=== PATIENT | male | born 1980 | race African-American/Black ===

== ENCOUNTER 2022-09-28 09:14 | Emergency (ER) | payer OTHER, MEDICAID, SELFPAY ==
[2022-09-28] VITALS (24 sets, daily range): BP systolic 144–191; BP diastolic 71–104; PULSE 104–123; RESP 20–61; TEMP 36.9; O2SAT 96–99; BMI 52.4
--- NOTE | 2022-09-28 09:22 | DI.RAD.S_ITS ---
PROCEDURE: XR CHEST 1V INDICATIONS: SOB TECHNIQUE: One view of the chest was acquired. COMPARISON: None. FINDINGS: Surgical changes and devices: None. Lungs and pleura: Pulmonary vascular congestion is seen. No definite focal infiltrate is noted. No pleural effusions or pneumothorax. Mediastinum: Mediastinal contours appear normal. Heart size is enlarged. Bones and chest wall: No suspicious bony lesions. Overlying soft tissues appear unremarkable. IMPRESSION: Cardiomegaly. Mild pulmonary vascular congestion. No definite focal infiltrate, pleural effusion or pneumothorax. Dictated by: Dilan Garcia M.D. on 09/28/2022 at 10:06 Approved by: Dilan Garcia M.D. on 09/28/2022 at 10:07
--- NOTE | 2022-09-28 09:22 | ED.SOB ---
HPI - SOB/Dyspnea General Chief Complaint: Shortness of Breath/Dyspnea Stated Complaint: out of breath x2 months with sweats Time Seen by Provider: 09/28/22 09:21 History of Present Illness HPI Narrative: 41-year-old smoker with history of untreated hypertension presents with a chief complaint of upwards of 2 months of shortness of breath. He states that it tends to get worse when he lies flat and when he exerts himself and takes and increasing period of time to get his breath back. He states he has no chest pain and has had no fever or chills. Denies nausea, vomiting or diarrhea. He denies any recent travel, trauma, injury, known cancer but does have some pain and swelling in his right foot. He denies any change in medications or diet. Related Data Previous Rx's Medication Instructions Recorded furosemide 40 mg tablet (Lasix) 40 mg PO DAILY #14 tabs 09/28/22 lisinopril 20 mg tablet 20 mg PO DAILY #30 tabs 09/28/22 Allergies Allergy/AdvReac Type Severity Reaction Status Date / Time No Known Drug Allergies Allergy Verified 09/28/22 11:10 Review of Systems Review of Systems Narrative: GENERAL: Denies chills, fatigue, malaise, fever, sweats. HEENT: Denies sinus pain, ear pain, sore throat, difficulty swallowing, dizziness. RESPIRATORY: See HPI CARDIOVASCULAR: Denies chest pain, palpitations, orthopnea, edema, GASTROINTESTINAL: Denies nausea, vomiting, abdominal pain, diarrhea, constipation, melena. : Denies dysuria, frequency, incontinence, hematuria, urinary retention. MUSCULOSKELETAL: denies weakness, joint pain, or bony pain SKIN: Denies rash, skin lesions, or other NEUROLOGIC: Denies weakness, headache, numbness, change in speech, confusion, seizures, incoordination. PSYCHIATRIC: No concerning psychosocial issues. 12 point review of systems is negative except for those stated above Exam Narrative Exam Narrative: GENERAL: [41] year old patient appears stated age. Well-developed patient, in moderate distress, obviously short of breath HEAD: Atraumatic. Normocephalic. EYES: Pupils equal round and reactive. Extraocular motions intact. No scleral icterus. No injection or drainage. ENT: Nose without bleeding, purulent drainage. Throat without erythema, tonsillar hypertrophy or exudate. Airway patent. NECK: Trachea midline. Non tender CARDIOVASCULAR: Tachycardic and regular rhythm without murmurs, gallops, or rubs. RESPIRATORY: Increased work of breathing, rapid and shallow, decreased breath sounds throughout, possible bilateral basilar crackles GASTROINTESTINAL: Abdomen soft, non-tender, nondistended. EXTREMITIES: No edema or joint tenderness. BACK: Nontender without deformity or crepitance. No flank tenderness. NEURO: AOx3. SKIN: No rash or erythema of visible areas Initial Vital Signs Initial Vital Signs: Vital Signs Pulse Rate 123 H 09/28/22 09:20 Blood Pressure 191/82 H 09/28/22 09:20 Pulse Oximetry 99 09/28/22 09:20 Course Orders Ordered: Discontinued Medications Furosemide (Furosemide 40 Mg/4 Ml Vial) 40 mg IV NOW ONE Stop: 09/28/22 10:24 Last Admin: 09/28/22 10:42 Dose: 40 mg Documented By: KIAN Nicotine (Nicotine 7 Mg Patch) 7 mg TOP NOW ONE Stop: 09/28/22 11:54 Last Admin: 09/28/22 12:03 Dose: 7 mg Documented By: RODRIGUEZ Reevaluation(s) Reevaluation #1: Patient has made a large amount of dilute urine after Lasix, feels significant improvement no longer short of breath Consultations Consultation #1: called Dr. Travis ([facility]) regarding echo, not yet read. Consultation #2: discussed echo with Dr. Travis (see report) discussed with office communication professor cardio (Dr. Macias). Agrees with plan to diurese, admit here at [place]. Typical ischemia workup. HTN control with ACEI. Diuretic. Vital Signs Vital signs: Vital Signs - 8 hr 09/28/22 09:28 09/28/22 09:20 09/28/22 09:20 Temperature 98.4 F Pulse Rate 108 H 123 H Respiratory Rate 25 H Blood Pressure 191/82 H 191/82 H Pulse Oximetry 99 99 Oxygen Delivery Method Room Air 09/28/22 09:30 09/28/22 09:30 09/28/22 09:45 Temperature Pulse Rate 106 H 104 H Respiratory Rate 27 H 31 H Blood Pressure 183/83 H Pulse Oximetry 99 99 Oxygen Delivery Method 09/28/22 09:45 09/28/22 10:00 09/28/22 10:27 Temperature Pulse Rate 106 H Respiratory Rate Blood Pressure 168/71 H 155/100 H Pulse Oximetry 99 Oxygen Delivery Method 09/28/22 10:27 09/28/22 10:30 09/28/22 10:30 Temperature Pulse Rate 106 H 106 H Respiratory Rate 31 H Blood Pressure 156/94 H Pulse Oximetry 98 97 Oxygen Delivery Method 09/28/22 10:42 09/28/22 10:42 09/28/22 10:45 Temperature Pulse Rate 112 H Respiratory Rate 31 H Blood Pressure 157/101 H 161/104 H Pulse Oximetry 99 Oxygen Delivery Method 09/28/22 10:45 09/28/22 11:00 09/28/22 11:30 Temperature Pulse Rate 108 H 106 H 116 H Respiratory Rate 23 35 H Blood Pressure Pulse Oximetry 98 96 97 Oxygen Delivery Method 09/28/22 12:00 09/28/22 12:12 09/28/22 12:12 Temperature Pulse Rate 119 H 109 H Respiratory Rate 25 H 61 H Blood Pressure 144/90 H Pulse Oximetry 98 97 Oxygen Delivery Method 09/28/22 12:15 09/28/22 12:15 09/28/22 12:30 Temperature Pulse Rate 105 H 107 H Respiratory Rate 32 H 30 H Blood Pressure 153/93 H Pulse Oximetry 96 96 Oxygen Delivery Method Room Air 09/28/22 12:31 09/28/22 12:31 09/28/22 12:46 Temperature Pulse Rate 109 H Respiratory Rate 43 H Blood Pressure 171/102 H 151/91 H Pulse Oximetry 97 Oxygen Delivery Method Room Air 09/28/22 12:46 09/28/22 13:00 09/28/22 13:00 Temperature Pulse Rate 106 H 108 H Respiratory Rate 20 31 H Blood Pressure 154/85 H Pulse Oximetry 96 96 Oxygen Delivery Method Room Air 09/28/22 13:15 09/28/22 13:15 09/28/22 13:30 Temperature Pulse Rate 106 H 106 H Respiratory Rate 31 H 31 H Blood Pressure 166/86 H Pulse Oximetry 96 96 Oxygen Delivery Method Room Air 09/28/22 13:31 09/28/22 13:31 Temperature Pulse Rate 105 H Respiratory Rate 38 H Blood Pressure 163/79 H Pulse Oximetry 97 Oxygen Delivery Method MDM - SOB/Dyspnea Lab Data 09/28/22 09:24 09/28/22 09:24 Labs: Lab Results 09/28/22 09/28/22 09/28/22 Range/Units 09:24 09:24 09:24 WBC 11.6 H (4.5-11.0) X10^3/uL RBC 5.40 (4.5-5.9) X10^6/uL Hgb 12.4 L (13.5-17.5) g/dL Hct 40.2 L (41-53) % MCV 74.4 L (80-100) fL MCH 23.0 L (26-34) PG MCHC 31.0 (30-36) % RDW 15.5 H (11.6-14.8) % Plt Count 390 (150-400) X10^3/uL Neut % (Auto) 82.8 H (50-75) % Lymph % (Auto) 12.0 L (25-40) % [place] % (Auto) 3.9 (3-14) % Eos % (Auto) 0.6 L (2-4) % Baso % (Auto) 0.7 (0-2) % Neut # (Auto) 9600 H (8653-3166) /uL Lymph # (Auto) 1400 (6944-1778) /uL [place] # (Auto) 400 (0-900) /uL Eos # (Auto) 100 (0-450) /uL Baso # (Auto) 100 (0-100) /uL PT 14.0 H (10.1-12.7) SECONDS INR 1.2 (0.9-1.3) D-Dimer 3860 H (<500) ng/ml Sodium (137-145) mmol/L Potassium (3.4-5.1) mmol/L Chloride (98-107) mmol/L Carbon Dioxide (22-32) mmol/L BUN (9-20) mg/dL Creatinine (0.66-1.25) mg/dL Estimated GFR (>60) mL/min BUN/Creatinine Ratio (6-22) Glucose (70-100) mg/dL Calcium (8.4-10.2) mg/dL Magnesium (1.6-2.3) mg/dL Total Bilirubin (0.2-1.3) mg/dL AST (17-59) IU/L ALT (<50) IU/L Alkaline Phosphatase (38-126) U/L Total Creatine Kinase (55-170) U/L CK-MB (CK-2) (<2.37) ng/mL CK-MB (CK-2) Rel Index (1.5-5.0) % Troponin I (0.01-0.034) ng/mL C-Reactive Protein (<1.0) mg/dL NT-Pro-B Natriuret Pep (<125) pg/mL Total Protein (6.3-8.2) g/dL Albumin (3.5-5.0) g/dL Globulin (1.7-4.1) g/dL Albumin/Globulin Ratio (1.0-2.8) Lipase (23-300) U/L U Opiates 300ng/mL cut (Negative) Ur Oxycodone Screen (Negative) Urine Methadone Screen (Negative) Ur Barbiturates Screen (Negative) U Tricyclic Antidepress (Negative) Ur Phencyclidine Scrn (Negative) Ur Amphetamines Screen (Negative) U Methamphetamines Scrn (Negative) Ur MDMA Scrn (Ecstasy) (Negative) U Benzodiazepines Scrn (Negative) Urine Cocaine Screen (Negative) U Marijuana (THC) Screen (Negative) SARS-CoV-2 (PCR) (Negative) 09/28/22 09/28/22 09/28/22 Range/Units 09:24 09:26 10:10 WBC (4.5-11.0) X10^3/uL RBC (4.5-5.9) X10^6/uL Hgb (13.5-17.5) g/dL Hct (41-53) % MCV (80-100) fL MCH (26-34) PG MCHC (30-36) % RDW (11.6-14.8) % Plt Count (150-400) X10^3/uL Neut % (Auto) (50-75) % Lymph % (Auto) (25-40) % [place] % (Auto) (3-14) % Eos % (Auto) (2-4) % Baso % (Auto) (0-2) % Neut # (Auto) (2824-2578) /uL Lymph # (Auto) (6789-8960) /uL [place] # (Auto) (0-900) /uL Eos # (Auto) (0-450) /uL Baso # (Auto) (0-100) /uL PT (10.1-12.7) SECONDS INR (0.9-1.3) D-Dimer (<500) ng/ml Sodium 140 (137-145) mmol/L Potassium 4.3 (3.4-5.1) mmol/L Chloride 105 (98-107) mmol/L Carbon Dioxide 24 (22-32) mmol/L BUN 19 (9-20) mg/dL Creatinine 0.93 (0.66-1.25) mg/dL Estimated GFR > 60 (>60) mL/min BUN/Creatinine Ratio 20.4 (6-22) Glucose 156 H (70-100) mg/dL Calcium 8.4 (8.4-10.2) mg/dL Magnesium 1.9 (1.6-2.3) mg/dL Total Bilirubin 0.7 (0.2-1.3) mg/dL AST 41 (17-59) IU/L ALT 39 (<50) IU/L Alkaline Phosphatase 138 H (38-126) U/L Total Creatine Kinase 334 H (55-170) U/L CK-MB (CK-2) 5.42 H (<2.37) ng/mL CK-MB (CK-2) Rel Index 1.6 (1.5-5.0) % Troponin I 0.027 (0.01-0.034) ng/mL C-Reactive Protein 1.7 H (<1.0) mg/dL NT-Pro-B Natriuret Pep 6270 H (<125) pg/mL Total Protein 7.8 (6.3-8.2) g/dL Albumin 3.8 (3.5-5.0) g/dL Globulin 4.0 (1.7-4.1) g/dL Albumin/Globulin Ratio 1.0 (1.0-2.8) Lipase 149 (23-300) U/L U Opiates 300ng/mL cut Negative (Negative) Ur Oxycodone Screen Negative (Negative) Urine Methadone Screen Negative (Negative) Ur Barbiturates Screen Negative (Negative) U Tricyclic Antidepress Negative (Negative) Ur Phencyclidine Scrn Negative (Negative) Ur Amphetamines Screen Positive H (Negative) U Methamphetamines Scrn Positive H (Negative) Ur MDMA Scrn (Ecstasy) Negative (Negative) U Benzodiazepines Scrn Negative (Negative) Urine Cocaine Screen Negative (Negative) U Marijuana (THC) Screen Negative (Negative) SARS-CoV-2 (PCR) Negative (Negative) Urine Dip Bedside Urine Glucose Negative Bedside Urine Bilirubin - Negative Bedside Urine Ketone - Negative Urine Specific [place] 1.015 Bedside Urine Occult Blood - Negative Bedside Urine pH 6.0 Bedside Urine Protein - Negative Bedside Urine Urobilinogen - Negative Bedside Urine Nitrite - Negative Bedside Urine Leukocytes - Negative Esterase MDM Narrative Medical decision making narrative: CC: 41-year-old male with increasing shortness of breath for at least the past few months including exertional dyspnea, orthopnea, lower extremity swelling in the absence of trauma or injury. Denies alcohol use or street drugs. Did have some cough and cold symptoms with low-grade fever at the onset Complicating co-morbidities: Untreated hypertension, BMI 52.5 Data collected from: Patient, also independent discussion with at bedside who suggest these symptoms have likely been going on much longer than a few months Medical records reviewed: Nothing available in our EMR Differential considered, but not limited to: CHF due to myocarditis versus drug use versus alcohol versus untreated hypertension versus pulmonary embolism versus other Exam documented above, pertinent findings include: Elevated BMI, elevated work of breathing, exertional dyspnea and orthopnea, crackles in bases Lab Test results independently reviewed as above. Pertinent findings: Slight elevation in white blood cells with minimal left shift, low suspicion for infection given presentation. Slightly anemic with low MCV, perhaps iron-deficiency, would warrant anemia workup. Critically elevated D-dimer, will pursue pulmonary embolism with CT angiogram. Electrolytes and renal function within normal limits, troponin 0.027, indeterminate range, unclear etiology. Elevated BNP consistent with CHF presentation. UDS positive for both amphetamines and methamphetamines consistent with possibility of drug-induced cardiomyopathy Independently reviewed EKG as above Imaging studies independently reviewed: Chest x-ray notes cardiomegaly and vascular congestion, consistent with CHF presentation. CTA without obvious pulmonary embolism, nose pulmonary edema. Echo notes moderately dilated left ventricle with EF of 20-25% and global hypokinesis of left ventricle as well as moderate to severely dilated right ventricle. Consultations: Dr. Travis (Cardio), Dr. Macias (Cardio) see above Treatments: Lasix Re-evaluations: patient does admittedly feels significant improvement after producing a large volume of dilute urine. Discussion: Patient presents with acute CHF exacerbation though the acuity is hard to determine. Patient clearly and volume overload and diagnostics suggestive of significantly depressed ejection fraction in the absence of pulmonary embolism. Patient is not hypoxemic at any point. There is no evidence of pulmonary embolism or acute ischemia. Other possible etiologies of cardiomyopathy include viral myocarditis, methamphetamine versus other. Patient strongly encouraged to be admitted to the hospital for ongoing diuresis, blood pressure control and further workup. He clearly demonstrates capacity to make his own decisions and after this extensive discussion refuses admission. His is at the bedside and though frustrated understands that the patient can make his own decisions. He understands that at any point should he change his mind he can return for this workup and without fear of rapid percussion. He understands that the decision to leave could result in worsening of his condition, permanent disability or even . I have written prescriptions and sent to his pharmacy of choice and given contact information for Cardiology and primary care Disposition: see below, along with detailed discharge instructions that have been reviewed with patient as well as indications for ED re-evaluation and additional outpatient follow up Critical Care Time Critical Care Time Critical Care Time: Yes Total Critical Care Time: 45 Attestation: The high probability of a clinically significant, sudden or life threatening deterioration of the [CV] system(s) required my full and direct attention, intervention and personal management. The aggregate critical care time was [45] minutes. This time is in addition to time spent performing reported procedures but includes the following: [x] Data Review and interpretation [x] Patient assessment and monitoring of vital signs [x] Documentation [x] Medication orders and management Discharge Plan Departure Patient Disposition: Home Clinical Impression: Congestive heart failure Instructions: DI for Heart Failure Activity Restrictions/Additional Instructions: *You have been diagnosed with [congestive heart failure, possibly due to untreated blood pressure versus a viral infection of your heart or other. As we discussed I very much would have hoped to keep you in the hospital but you would prefer to go home and you have the right to make this decision.] *What to do: *Please continue to take your regular medications as directed. [ X] New medication prescriptions sent to your pharmacy: [[facility] ] [ ] New medication written as a paper prescription [ ] No new medications given *Please follow up with your primary care provider in 2-3 days, call for an appointment. Let them know you were seen in the Emergency Department and that we ask that you be seen in follow up. We will electronically transmit a record of today's note if your PCP is in our system *If you do not have a primary care provider please contact the [facility] Resource line at [phone]. They will ask some questions about your medical history and help get you set up with a doctor in the community. *Also, please follow up with Dr. Macias of [facility], please let the office know that you were seen and evaluated here in the emergency department and we would like you to be seen in follow up. *Return to Emergency Department if you should have any new, worsening or concerning symptoms, such as [fever greater than 101 F, shaking chills, worsening pain, persistent vomiting or other bothersome symptoms] Prescriptions: New furosemide [Lasix] 40 mg tablet 40 mg PO DAILY Qty: 14 0RF lisinopril 20 mg tablet 20 mg PO DAILY Qty: 30 0RF Referrals: Magaly Macias MD [Physician] - Stand Alone Forms: Patient Portal/API
[2022-09-28 09:47] LABS: Add Manual Diff / Slide Review NO; Basophils Absolute Auto 100 /uL (0-100); Basophils Percent Auto 0.7 % (0-2); Eosinophils Absolute Auto 100 /uL (0-450); Eosinophils Percent Auto 0.6 % (2-4); Hematocrit 40.2 % (41-53); Hemoglobin 12.4 g/dL (13.5-17.5); Lymphocytes Absolute Auto 1400 /uL (1100-4500); Mean Corpuscular Volume 74.4 fL (80-100); Monocytes Absolute Auto 400 /uL (0-900); Monocytes Percent Auto 3.9 % (3-14); Neutrophils Absolute Auto 9600 /uL (1500-7000); Neutrophils Percent Auto 82.8 % (50-75); Platelet Count 390 X10^3/uL (150-400); Red Cell Distribution Width 15.5 % (11.6-14.8); White Blood Cell Count 11.6 X10^3/uL (4.5-11.0)
[2022-09-28 09:58] LABS: Alanine Aminotransferase 39 IU/L (<50); Albumin 3.8 g/dL (3.5-5.0); Alkaline Phosphatase 138 U/L (38-126); Aspartate Aminotransferase 41 IU/L (17-59); BUN Creatinine Ratio 20.4 (6-22); Bilirubin Total 0.7 mg/dL (0.2-1.3); Blood Urea Nitrogen 19 mg/dL (9-20); C-Reactive Protein Quant 1.7 mg/dL (<1.0); Calcium 8.4 mg/dL (8.4-10.2); Carbon Dioxide 24 mmol/L (22-32); Chloride 105 mmol/L (98-107); Creatine Kinase 334 U/L (55-170); Estimated Glomerular Filt Rate > 60 mL/min (>60); Glucose 156 mg/dL (70-100); HEMOLYSIS < 15 (0-50); Lipase 149 U/L (23-300); Magnesium 1.9 mg/dL (1.6-2.3); Potassium 4.3 mmol/L (3.4-5.1); Sodium 140 mmol/L (137-145); Total Protein 7.8 g/dL (6.3-8.2)
[2022-09-28 09:59] LABS: D Dimer 3860 ng/ml (<500)
[2022-09-28 10:04] LABS: INR 1.2 (0.9-1.3)
[2022-09-28 10:07] LABS: NT-proBNP (BNP-Adult 18+) 6270 pg/mL (<125); Troponin I 0.027 ng/mL (0.01-0.034)
[2022-09-28 10:10] LABS: CKMB % Relative Index 1.6 % (1.5-5.0); Creatine Kinase MB 5.42 ng/mL (<2.37)
--- NOTE | 2022-09-28 10:23 | DI.CT.S_ITS ---
PROCEDURE: CT ANGIO CHEST PE PROTOCOL INDICATIONS: SOB, tachy, critical Dimer, acute CHF TECHNIQUE: After the administration of intravenous contrast, 2 mm thick sections acquired from the pulmonary apices to the posterior costophrenic angles. 3-dimensional maximum intensity projection (MIP) coronal and sagittal reformats were then acquired through the thorax. For radiation dose reduction, the following was used: automated exposure control, adjustment of mA and/or kV according to patient size. COMPARISON: None. FINDINGS: Image quality: Excellent. Pulmonary arteries: Pulmonary arterial opacification is suboptimal. Mean attenuation in the main pulmonary trunk is less than 180 Hounsfield units. Only central/saddle pulmonary embolism can be confidently excluded. No gross evidence of lobar or segmental pulmonary embolism identified. Normal caliber main pulmonary trunk. Lungs and pleura: It diffuse interlobular septal thickening and hazy ground-glass attenuation of the lung parenchyma, consistent with pulmonary edema in the appropriate clinical setting. No consolidation. Central airways clear. No significant pleural finding. Mediastinum: Normal heart size. No pericardial effusion. No mediastinal or hilar lymphadenopathy. Bones and chest wall: No acute chest wall lesion. No suspicious bone abnormality Abdomen: No acute finding in the partially visualized upper abdomen. IMPRESSION: Suboptimal pulmonary arterial opacification. No gross evidence of pulmonary embolism. Findings consistent with pulmonary edema. Dictated by: Nikita Swift M.D. on 09/28/2022 at 10:51 Approved by: Nikita Swift M.D. on 09/28/2022 at 10:54
--- NOTE | 2022-09-28 10:23 | DI.ECHO.S_ITS ---
[facility]---------+ [facility] +---------+ : : [address] [place] : : : : [id number] : : : : Phone: [phone] Echocardiogram Report + + :Name: MOY CLEMENT Study Date: 09/28/2022 Height: 70 in : :[facility] ReadingLocation: Weight: 365 lb : : Gender: Male BSA: 2.7 m2 : :: 1980 Age: 41 yrs BP: 161/104 mmHg: :Reason For Study: ACUTE CONGESTIVE HEART FAILURE : :Ordering Physician: RAMOS, : :VEGA Performed By: Jacy Castano : :Referring: VEGA BEASLEY : + + Interpretation Summary Moderately dilated left ventricle with ejection fraction 20-25%. Severe global hypokinesis of the left ventricle. Moderate to severely dilated right ventricle with right ventricular systolic function at the lower limits of normal. Severely dilated left atrium. Mild mitral regurgitation. Mild tricuspid regurgitation. Right ventricular systolic pressure is estimated to be 39 mmHg plus the clinically estimated CVP which cannot be estimated on this exam. Procedure: A two-dimensional transthoracic echocardiogram with color flow and Doppler was performed. The study quality was technically adequate. There is no prior echocardiogram noted for this patient. A contrast injection of Definity was performed to improve assessment of LV function. The patient was in sinus tachycardia with heart rates between 105-113 bpm during the exam. Left Ventricle: The left ventricle is moderately dilated. The estimated left ventricular end diastolic volume is 303 ml. Left ventricular wall thickness is at the upper limits of normal. The ejection fraction is estimated to be 20- 25%. There is severe global hypokinesis of the left ventricle. Diastolic function could not be accurately assessed due to tachycardia. Right Ventricle: The right ventricle is moderate to severely dilated. Right ventricular systolic function is at the lower limits of normal. Atria: The left atrium is severely dilated. Right atrial size is normal. There is no Doppler evidence for an interatrial shunt. Mitral Valve: The mitral valve is normal in structure and function. There is mild mitral regurgitation. Aortic Valve: The aortic valve opens well. There is no aortic valve stenosis. No aortic regurgitation is present. Tricuspid Valve: The tricuspid valve is normal in structure and function. There is mild tricuspid regurgitation. Right ventricular systolic pressure is estimated to be 39 mmHg plus the clinically estimated CVP which cannot be estimated on this exam. Pulmonic Valve: The pulmonic valve leaflets are thin and pliable; valve motion is normal. There is mild pulmonic regurgitation. Great Vessels: The aortic root is normal size. The dimensions of the ascending aorta are normal. The inferior vena cava was not visualized. Pericardium/ Pleura There is no pericardial effusion. There is no pleural effusion. MMode/2D Measurements & Calculations LVIDd: 6.7 cm LVOT diam: 2.5 cm LVIDs: 6.1 cm Ao root diam: 3.6 cm FS: 9.9 % asc Aorta Diam: 3.0 cm EPSS: 2.5 cm Ao Arch Diam (Prox Trans): 2.5 cm IVSd: 0.97 cm LVPWd: 1.1 cm LV pierre. diameter/BSA (cm/m^2): 2.5 LV sys. diameter/BSA (cm/m^2): 2.3 LA A2 area: 36.7 cm2 RA long axis: 5.2 cm LA A4 area: 27.5 cm2 RA area: 22.3 cm2 LA length (vol): 6.1 cm RA vol: 81.3 ml LA vol: 140.6 ml RA : 30.2 ml/m2 LA vol index: 52.2 ml/m2 RVD1 (basal): 5.0 cm RVD2 (mid): 4.6 cm TAPSE: 1.7 cm Doppler Measurements & Calculations Ao V2 max: 125.9 cm/sec LVOT Max Porfirio: 78.9 cm/sec Ao V2 mean: 95.1 cm/sec LV V1 max P.5 mmHg Ao max P.4 mmHg LV V1 VTI: 13.6 cm Ao mean P.9 mmHg MARTHA(I,D): 3.0 cm2 Ao V2 VTI: 22.4 cm MARTHA(V,D): 3.1 cm2 sev ratio: 0.61 MARTHA indexed to BSA (cm^2/m^2): 1.1 MV E max porfirio: 134.7 cm/sec TR max porfirio: 313.4 cm/sec MV A max porfirio: 1.3 cm/sec TR max P.3 mmHg MV E/A: 102.6 PA V2 max: 97.2 cm/sec Med Peak E' Porfirio: 4.4 cm/sec PA V2 mean: 65.3 cm/sec E/E' med: 30.3 PA mean P.0 mmHg Lat Peak E' Porfirio: 7.1 cm/sec PA pr(Accel): 44.7 mmHg E/E' lat: 19.1 E/e' average: 24.7 MV dec time: 0.16 sec SV(OT): 67.3 ml Electronically signed by: Natasha Aguilar on Reading Physician:09/28/2022 01:56 PM
[2022-09-28] MEDS: FUROSEMIDE 40 MG/4 ML VIAL IV (10:42)
[2022-09-28] MEDS: NICOTINE 7 MG PATCH TOP (12:03)
[2022-09-28 12:29] LABS: COVID19 -Nasal RAPID Negative (Negative)
--- NOTE | 2022-09-28 13:46 | PC.NURSE ---
Pt reports he feels better, has not been to the doctor's since he was a minor, and is wanting to leave with intention to follow up outpatient. Notified Dr. Torres and updated pt on current plan of care, Dr. Torres now at bedside.
--- NOTE | 2022-09-28 13:50 | DI.US.S_ITS ---
PROCEDURE: US PERIPH VENOUS LOW EXTREM RT INDICATIONS: RT LEG PAIN SWELLING AND ELEVATED D-DIMER TECHNIQUE: Real-time imaging, as well as color and pulse Doppler interrogation, were performed of the lower extremity deep veins from the inguinal ligament to the popliteal fossa. COMPARISON: None. FINDINGS: The common femoral, femoral and popliteal veins are normally compressible, and free of intraluminal thrombus. Color and pulse Doppler demonstrate normal phasic intraluminal flow. There is normal augmentation response to distal compression maneuver. IMPRESSION: No sonographic evidence of DVT. Dictated by: Nikita Swift M.D. on 09/28/2022 at 14:24 Approved by: Nikita Swift M.D. on 09/28/2022 at 14:25
--- NOTE | 2022-09-28 14:18 | PC.NURSE ---
Dr. Torres educated pt on benefits of staying in hospital to continue care, as well as risks of leaving, pt verbalizes understanding of risks and states his wishes are to leave hospital against medical advice. This RN present as witness.
[2022-09-28 14:48] LABS: UR Morphine/Opiate cutoff 300 Negative (Negative); Ur Creatinine Normal (Normal); Ur Specific Gravity Normal (Normal); Urine Amphetamines Positive (Negative); Urine Barbiturates Negative (Negative); Urine Benzodiazepines Negative (Negative); Urine Cocaine Negative (Negative); Urine MDMA Negative (Negative); Urine Methadone Negative (Negative); Urine Methamphetamines Positive (Negative); Urine Oxycodone Negative (Negative); Urine Phencyclidine Negative (Negative); Urine Tetrahydrocannabinol Negative (Negative); Urine Tricyclic Antidepressant Negative (Negative); Urine pH Normal (Normal)
== END 2022-09-28 14:29 | disposition home or self-care (01) ==
PROVIDERS: Emergency Provider Emergency Medicine
DX: I50.9 Heart failure, unspecified (principal); I10 Essential (primary) hypertension; R06.02 Shortness of breath; D72.829 Elevated white blood cell count, unspecified; R79.1 Abnormal coagulation profile; R79.89 Other specified abnormal findings of blood chemistry; Z20.822 Contact with and (suspected) exposure to COVID-19; Z68.43 Body mass index [BMI] 50.0-59.9, adult
CPT/HCPCS: 36415; 71045; 71275; 80053; 80305; 81003; 82550; 82553; 83690; 83735; 83880; 84484; 85025; 85379; 85610; 86140; 87635; 93005; 93010; 93306; 93971; 96374; 99284; 99291; C9803; J1940; Q9957; Q9967